=== PATIENT | female | born 1940 | race Caucasian/White ===

== ENCOUNTER → 2017-09-23 16:57 | Outpatient (CLI) | payer MEDICARE ==
[2017-09-23 17:50] LABS: HEMATOCRIT 25.9 % (36.0-48.0); HEMOGLOBIN 8.5 g/dL (12-16); LYMPHOCYTES 11.5 % (15-50); MCH 31.8 pg (26.0-34.0); MCHC 32.8 g/dL (31.0-37.0); MEAN PLATELET VOLUME 8.4 fL (7.4-10.4); NEUTROPHILS 76.4 % (40-80); RBC 2.67 10x6/uL (4.00-5.40); RDW 16.1 % (11.5-14.5); WBC 19.6 10x3/uL (4.8-10.8)
[2017-09-23 17:53] LABS: PLATELET COUNT 768 10x3/uL (130-400)
== END | disposition home or self-care (01) ==
LOC: D.LABREF 16:57
PROVIDERS: Family Medicine
DX: T83.511D Infection and inflammatory reaction due to indwelling urethral catheter, subsequent encounter (principal)